=== PATIENT | male | born 1995 | race Caucasian/White ===

== ENCOUNTER 2016-10-20 17:49 | Emergency (ER) | payer BC ==
--- NOTE | 2016-10-20 18:41 | EDPHY ---
H & P Stated Complaint: Fell on coffee table, head lac Time Seen by Provider: 10/20/16 18:13 HPI/ROS: CHIEF COMPLAINT: Head injury, scalp laceration HISTORY OF PRESENT ILLNESS: 21-year-old male arrives via private vehicle stating that he was dancing at a alliance party, slipped on water impacted the occiput of his head with no loss of consciousness. Sustained laceration. No midline C- spine pain. No peripheral paresthesia, weakness, numbness. No facial injury. No facial complaints of pain or paresthesia. No chest pain or trauma no back pain or trauma no abdominal pain or trauma. REVIEW OF SYSTEMS: A ten point review of systems was performed and is negative with the exception of the items mentioned in the HPI PAST MEDICAL/SURGICAL HISTORY: no anticoagulant use, no relevant medical/ surgical history SOCIAL HISTORY: Student PHYSICAL EXAM 1) GENERAL: Well-developed, well-nourished, alert and oriented. Appears to be in no acute distress. Answering questions appropriately. 2) HEAD: Normocephalic, 4 cm occipital laceration 3) HEENT: Pupils equal, round, reactive to light bilaterally. Negative Horners. Nasopharynx, oropharynx, clear. No deformity or angulation of nose. No septal hematoma. No rhinorrhea. No oral trauma. Ears bilaterally with normal tympanic membranes. No hemotympanum. No fluid or blood in the external auditory canal. No raccoon eyes. No Hensley sign. Teeth are normally aligned with no gross malocclusion, TMJ bilaterally nontender, facial bones nontender including the zygomatic arch, maxilla mandible. 4) NECK: No cervical collar is on. Posterior cervical spine is nontender, no stepoff, no effusion. Full range of motion which does not elicit any midline cervical spine pain, no posterior midline tenderness, no step-off. 5) LUNGS: Clear to auscultation bilaterally, no wheezes, no rhonchi, no retractions. No obvious signs of trauma. No chest wall pain. No flaring, no grunting. Moving symmetrically. No crepitus. 6) HEART: Regular rate and rhythm, 7) ABDOMEN: No guarding, no rebound, no focal tenderness, no peritoneal signs, no signs of trauma, no ecchymosis 8) MUSCULOSKELETAL: Moving all extremities, no focal areas of tenderness, no obvious trauma. 9) BACK: No midline vertebral tenderness, no fluctuance, no step-off, no obvious trauma, no visual or palpable abnormality. 10) SKIN: scalp laceration to occiput DIFFERENTIAL DIAGNOSIS: [ Not necessarily in any particular order, my differential diagnosis includes, but is not limited to, concussion, skull fracture, intraparenchymal contusion, subarachnoid, subdural and epidural hematoma. The patient understands that this diagnosis is provisional and can never be 100% accurate. - Personal History Current Tetanus/Diphtheria Vaccine: Yes Current Tetanus Diphtheria and Acellular Pertussis (TDAP): Yes - Medical/Surgical History Other PMH: Anxiety, Bipolar DO, - Social History Smoking Status: Never smoked Constitutional: Initial Vital Signs Temperature (C) 37.0 C 10/20/16 17:57 Heart Rate 120 H 10/20/16 17:57 Respiratory Rate 14 10/20/16 17:57 O2 Sat (%) 91 L 10/20/16 17:57 O2 Delivery Mode Room Air Allergies/Adverse Reactions: No Known Allergies Allergy (Unverified 10/20/16 18:02) Home Medications: Medication Instructions Recorded clonAZEPAM [Klonopin] 0.125 mg PO 10/20/16 traMADol [Ultram 50 mg (*)] 50 mg PO Q4 #7 tab 10/20/16 Medical Decision Making - Diagnostics Imagin:50 p.m.: CT head negative per Radiology interpretation with images reviewed by myself Procedures: Procedure: Laceration repair. I explained the indications, risks and benefits for both laceration repair and anesthetic administration. Verbal consent was obtained from the patient . The laceration on the occiput was anesthetized using 0.5% bupivicaine with epinephrine . After anesthetic administered the patient was observed for a period of time and had no apparent adverse effects. The wound was cleaned, prepped, draped in normal sterile fashion and explored to its base. No foreign body seen, no foreign bodies palpated. There were no deep structures involved. No galea defects identified The wound was repaired with 8 ramona . The wound repair was simple. The procedure was performed by myself. Patient has been informed that scarring will occur, although efforts have been made to minimize this. ED Course/Re-evaluation: 6:40 p.m.: At this time I entered the room to place ramona and close wound however patient has a self-described panic attack and will not allow me to close the wound until he receives benzodiazepine stating that 2 mg Xanax typically works for his panic attack. He does appear uncomfortable, is hyperventilating, crying. 7:27 p.m.: The patient requested that I speak with his parents. He signed a consent form to the medical records. I once again recommended CT imaging of the head which he agrees to at this time. He appears much more comp. He did allow me to close his wound shortly prior to speak with his parents 8:00 p.m.: Re-evaluation with serial exams. Discussed his negative imaging results. He is sleeping, easily woken, is nonfocal exam, answering questions appropriately, alert oriented person place time events, ambulating without assistance. States that he has sober friends that can come and pick him up. I offered to [facility] however he declines. I offered to speak with his parents again however he declines. - Data Points Medications Given: Discontinued Medications Alprazolam (Xanax) 2 mg PO EDNOW ONE Stop: 10/20/16 18:43 Last Admin: 10/20/16 18:49 Dose: 2 mg Departure - Departure Disposition: Home, Routine, Self-Care Clinical Impression: Head injury Qualifiers: Encounter type: initial encounter Qualified Code(s): S09.90XA - Unspecified injury of head, initial encounter Occipital scalp laceration Qualifiers: Encounter type: initial encounter Qualified Code(s): S01.01XA - Laceration without foreign body of scalp, initial encounter Condition: Good Instructions: Laceration (ED), Head Injury (ED) Additional Instructions: ALTHOUGH THERE IS NO EVIDENCE OF SERIOUS HEAD INJURY AT THIS TIME, DELAYED SIGNS CAN APPEAR 24 TO 48 HOURS AFTER INJURY. WE RECOMMEND THAT YOU DESIGNATE A FRIEND OR FAMILY MEMBER TO OBSERVE YOU OVER THE NEXT FEW DAYS TO ENSURE THAT YOUR CONDITION IS PROGRESSING NORMALLY. PLEASE RETURN TO THE EMERGENCY DEPARTMENT (ED) IMMEDIATELY IF YOU HAVE INCREASED HEADACHE, PERSISTENT HEADACHE , VOMITING, WEAKNESS, CONFUSION OR VISUAL PROBLEMS. WE RECOMMEND THAT YOU DO NOT RESUME CONTACT SPORTS OR ACTIVITIES THAT TAKE COORDINATION OR BALANCE SUCH SKIING OR RIDING A BICYCLE UNTIL CLEARED TO DO SO BY YOUR DOCTOR OR BY A NEUROLOGIST. Your ramona need to be removed in 7 days. You may return to the ER or follow up with your primary care provider at home Referrals: Return, to the ER in 7 days for staple removal [Other] - As per Instructions Prescriptions: traMADol [Ultram 50 mg (*)] 50 mg PO Q4 #7 tab
[2016-10-20] MEDS ORDERED: ALPRAZolam 1 MG TAB PO ONE (18:42)
[2016-10-20 20:25] VITALS: BP 132/78; PULSE 90; RESP 16; TEMP 98.2; O2SAT 98
== END 2016-10-20 20:24 | disposition home or self-care (01) ==
PROC: 0HQ0XZZ Repair Scalp Skin, External Approach (ICD-10-PCS; principal; 2016-10-20)
DX: S01.01XA Laceration without foreign body of scalp, initial encounter (principal); W01.198A Fall on same level from slipping, tripping and stumbling with subsequent striking against other object, initial encounter; Y92.89 Other specified places as the place of occurrence of the external cause; Y93.41 Activity, dancing